=== PATIENT | male | born 1950 ===

== ENCOUNTER → 2018-08-17 16:08 | Outpatient (REF) | payer OTHER, SELFPAY ==
[2018-08-17 17:22] LABS: Add Manual Diff / Slide Review NO; Basophils Percent Auto 0.7 % (0-2); Eosinophils Percent Auto 3.3 % (2-4); Hematocrit 43.8 % (41-53); Hemoglobin 15.2 g/dL (13.5-17.5); Lymphocytes Percent Auto 24.6 % (25-40); Mean Corpuscular HGB Conc 34.8 % (30-36); Mean Corpuscular Hemoglobin 33.3 PG (26-34); Mean Corpuscular Volume 95.6 fL (80-100); Monocytes Percent Auto 7.8 % (3-14); Neutrophils Absolute Auto 3500 /uL (1500-7000); Neutrophils Percent Auto 63.6 % (50-75); Platelet Count 148 X10^3/uL (150-400); Red Blood Cell Count 4.58 X10^6/uL (4.5-5.9); Red Cell Distribution Width 13.3 % (11.6-14.8); White Blood Cell Count 5.5 X10^3/uL (4.5-11.0)
[2018-08-20 20:31] LABS: Sex Hormone Binding Globulin 33 nmol/L (22-77)
[2018-08-21 15:46] LABS: Estradiol 19 pg/mL (< 40)
[2018-08-22 14:14] LABS: PSA Total 1.85 ng/mL (< 4.01)
[2018-08-22 14:33] LABS: Dehydroepiandrosterone Sulfate 79 mcg/dL (24-244)
[2018-08-22 20:10] LABS: Testosterone Free 76.3 pg/mL (30.0-135.0); Testosterone Total 483 ng/dL (250-1100)
== END ==
LOC: LAB 16:08
PROVIDERS: Visit Provider Naturopath
DX: E29.1 Testicular hypofunction (principal); N40.1 Benign prostatic hyperplasia with lower urinary tract symptoms
CPT/HCPCS: 36415; 82627; 82670; 84153; 84154; 84270; 84402; 84403; 85025

== ENCOUNTER → 2018-12-18 21:27 | Outpatient (REF) | payer OTHER, SELFPAY ==
[2018-12-18 22:45] LABS: Alanine Aminotransferase 23 IU/L (21-72); Albumin 3.6 g/dL (3.5-5.0); Albumin Globulin Ratio 1.4 (1.0-2.8); Alkaline Phosphatase 93 U/L (38-126); Aspartate Aminotransferase 27 IU/L (17-59); Bilirubin Total 0.4 mg/dL (0.2-1.3); Blood Urea Nitrogen 19 mg/dL (9-20); Calcium 9.1 mg/dL (8.4-10.2); Carbon Dioxide 28 mmol/L (22-32); Chloride 101 mmol/L (98-107); Cholesterol 141 mg/dL (140-199); Estimated Glomerular Filt Rate > 60.0 mL/min (>60); Globulin 2.6 g/dL (1.7-4.1); Glucose 106 mg/dL (80-110); HDL Cholesterol 62 mg/dL (40-60); HEMOLYSIS < 15 (0-50); LDL Cholesterol Calculated 64 mg/dL (<100); Potassium 4.5 mmol/L (3.4-5.1); Sodium 136 mmol/L (137-145); Total Protein 6.2 g/dL (6.3-8.2); Triglycerides 77 mg/dL (35-150)
[2018-12-18 22:52] LABS: Add Manual Diff / Slide Review NO; Basophils Absolute Auto 0 /uL (0-100); Basophils Percent Auto 0.7 % (0-2); Eosinophils Absolute Auto 100 /uL (0-450); Eosinophils Percent Auto 3.4 % (2-4); Hematocrit 44.3 % (41-53); Lymphocytes Absolute Auto 700 /uL (1100-4500); Lymphocytes Percent Auto 20.7 % (25-40); Mean Corpuscular HGB Conc 33.9 % (30-36); Mean Corpuscular Hemoglobin 32.9 PG (26-34); Mean Corpuscular Volume 97.2 fL (80-100); Monocytes Absolute Auto 400 /uL (0-900); Monocytes Percent Auto 10.5 % (3-14); Neutrophils Absolute Auto 2300 /uL (1500-7000); Neutrophils Percent Auto 64.7 % (50-75); Platelet Count 136 X10^3/uL (150-400); Red Blood Cell Count 4.55 X10^6/uL (4.5-5.9); Red Cell Distribution Width 13.1 % (11.6-14.8); White Blood Cell Count 3.5 X10^3/uL (4.5-11.0)
[2018-12-18 23:16] LABS: Luteinizing Hormone < 0.22 mIU/mL
[2018-12-21 16:37] LABS: Sex Hormone Binding Globulin 42 nmol/L (22-77)
[2018-12-22 15:17] LABS: PSA Total 1.98 ng/mL (< 4.01)
[2018-12-23 13:17] LABS: Testosterone, Total 906.9; Testosterone,Free 16.6
[2018-12-23 20:02] LABS: Estrogen 135.1 pg/mL (60-190)
== END ==
LOC: LAB 21:27
PROVIDERS: Visit Provider Family Medicine
DX: E29.1 Testicular hypofunction (principal); N40.1 Benign prostatic hyperplasia with lower urinary tract symptoms; E78.00 Pure hypercholesterolemia, unspecified
CPT/HCPCS: 36415; 80053; 80061; 82627; 82672; 83002; 84153; 84154; 84270; 84402; 84403; 85025